=== PATIENT | female | born 1940 | race American Indian/Alaskan Native ===

== ENCOUNTER 2018-11-17 08:39 | Day surgery (SDC) | payer BC ==
[2018-11-17 09:34] VITALS: BMI 21.4
[2018-11-17 11:00] VITALS: TEMP 98.3
[2018-11-17 13:46] VITALS: BP 120/46; PULSE 72
== END 2018-11-17 12:00 | disposition home or self-care (01) ==
LOC: JOR 08:39 → JASU-ENDO 08:39
PROVIDERS: ATTEND Internal Medicine Gastroenterology
PROC: 0DJD8ZZ Inspection of Lower Intestinal Tract, Via Natural or Artificial Opening Endoscopic (ICD-10-PCS; principal; 2018-11-17 09:45)
DX: Z12.11 Encounter for screening for malignant neoplasm of colon (principal); K55.20 Angiodysplasia of colon without hemorrhage; K57.30 Diverticulosis of large intestine without perforation or abscess without bleeding; Z86.010 Personal history of colon polyps; I10 Essential (primary) hypertension

== ENCOUNTER 2023-12-09 10:39 | Observation (INO) | payer BC ==
[2023-12-09 11:55] LABS: EPI CELLS 4 /uL (0-25.1); HYALINE CASTS 3 /uL (0-3.1); PH,URINE 6.5 (5.0-8.0); URINE APPEARANCE CLOUDY; URINE BACTERIA 235 /uL (0-1359); URINE BILIRUBIN NEGATIVE (NEGATIVE); URINE COLOR YELLOW; URINE GLUCOSE (UA) NEGATIVE (NEGATIVE); URINE KETONE NEGATIVE (NEGATIVE); URINE LEUK ESTERASE 3+ (NEGATIVE); URINE NITRITE NEGATIVE (NEGATIVE); URINE PROTEIN 1+ (NEGATIVE); URINE RBC 28 /uL (0-23.9); URINE UROBILINOGEN 0.2 mg/dL (0.2-1.0); URINE WBC 1735 /uL (0-25.8)
[2023-12-09 12:31] LABS: BASO % 0.5 % (0-2.0); HEMATOCRIT 34.5 % (32.4-45.2); HEMOGLOBIN 11.5 GM/dL (10.7-15.3); MCH 29.9 pg (25.7-33.7); MCHC 33.2 g/dl (32.0-36.0); MEAN CELL VOLUME 89.9 fl (80-96); MEAN PLT VOLUME 7.8 fl (7.5-11.1); MONO % 8.6 % (3.8-10.2); NEUT % 74.9 % (42.8-82.8); PLATELET COUNT 320 10^3/uL (134-434); RBC 3.84 M/mm3 (3.60-5.2); RDW 13.8 % (11.6-15.6); WHITE BLOOD COUNT 11.3 K/mm3 (4.0-10.0)
[2023-12-09 12:54] LABS: POTASSIUM 4.3 mmol/L (3.5-5.1)
[2023-12-09 12:56] LABS: ALBUMIN 3.2 g/dl (3.4-5.0); CALCIUM 9.4 mg/dL (8.5-10.1)
[2023-12-09 12:57] LABS: BLOOD UREA NITROGEN 14.3 mg/dL (7-18); MAGNESIUM 2.4 mg/dL (1.8-2.4)
[2023-12-09 13:00] LABS: CREATININE 0.8 mg/dL (0.55-1.3)
[2023-12-09 13:02] LABS: BILIRUBIN,TOTAL 0.4 mg/dL (0.2-1); TOT PROT 7.4 g/dl (6.4-8.2)
[2023-12-09] MEDS ORDERED: CEFTRIAXONE 1 GM/50 ML BAG ONE (13:34)
[2023-12-09] MEDS: CEFTRIAXONE 1,000 MG in DEXTROSE 5%-WATER - 50 ML IVPB ONE (13:34)
[2023-12-09] MEDS: ALPRAZolam 0.25 MG TABLET PO PRN (21:41)
[2023-12-09] MEDS: LOSARTAN POTASSIUM 50 MG TABLET PO SCH (21:41)
[2023-12-09] MEDS: ATORVASTATIN CA 10 MG TABLET (FP) PO SCH (21:41)
[2023-12-09] MEDS: MIRTAZAPINE 15 MG TABLET (FP) PO SCH (21:41)
[2023-12-10] MEDS: MELATONIN 5 MG TABLETS PO ONE (01:16)
[2023-12-10] MEDS: ASPIRIN COATED 81 MG TABLET.EC PO SCH (10:23)
[2023-12-10] MEDS: CEFTRIAXONE 1 GM in DEXTROSE 5%-WATER - 50 ML IVPB SCH (10:23)
[2023-12-10 10:30] LABS: HEMATOCRIT 34.5 % (32.4-45.2); HEMOGLOBIN 11.5 GM/dL (10.7-15.3); MCH 30.1 pg (25.7-33.7); MCHC 33.3 g/dl (32.0-36.0); MEAN CELL VOLUME 90.4 fl (80-96); MEAN PLT VOLUME 8.3 fl (7.5-11.1); PLATELET COUNT 363 10^3/uL (134-434); RBC 3.82 M/mm3 (3.60-5.2); RDW 13.8 % (11.6-15.6); WHITE BLOOD COUNT 10.1 K/mm3 (4.0-10.0)
[2023-12-10 10:51] LABS: POTASSIUM 4.5 mmol/L (3.5-5.1)
[2023-12-10 10:54] LABS: CALCIUM 9.3 mg/dL (8.5-10.1)
[2023-12-10 10:55] LABS: ALBUMIN 3.1 g/dl (3.4-5.0); BLOOD UREA NITROGEN 14.4 mg/dL (7-18)
[2023-12-10 10:58] LABS: CREATININE 0.9 mg/dL (0.55-1.3); PHOSPHOROUS 3.9 mg/dL (2.5-4.9)
[2023-12-10 10:59] LABS: BILIRUBIN,TOTAL 0.4 mg/dL (0.2-1); TOT PROT 7.3 g/dl (6.4-8.2)
[2023-12-10 11:17] LABS: MAGNESIUM 2.6 mg/dL (1.8-2.4)
[2023-12-10] MEDS: MELATONIN 5 MG TABLETS PO PRN (22:01)
[2023-12-11 06:54] VITALS: RESP 18
[2023-12-11 09:56] LABS: BASO % 0.8 % (0-2.0); EOS % 4.2 % (0-4.5); HEMATOCRIT 31.2 % (32.4-45.2); HEMOGLOBIN 10.3 GM/dL (10.7-15.3); LYMPH % 16.2 % (8-40); MCH 29.8 pg (25.7-33.7); MCHC 33.1 g/dl (32.0-36.0); MONO % 6.7 % (3.8-10.2); NEUT % 72.1 % (42.8-82.8); PLATELET COUNT 315 10^3/uL (134-434); RBC 3.46 M/mm3 (3.60-5.2); RDW 13.3 % (11.6-15.6)
[2023-12-11 10:20] LABS: POTASSIUM 4.3 mmol/L (3.5-5.1)
[2023-12-11 10:30] LABS: ALBUMIN 2.7 g/dl (3.4-5.0); BLOOD UREA NITROGEN 11.9 mg/dL (7-18); MAGNESIUM 2.3 mg/dL (1.8-2.4)
[2023-12-11 10:33] LABS: CREATININE 0.7 mg/dL (0.55-1.3); PHOSPHOROUS 3.8 mg/dL (2.5-4.9)
[2023-12-11 10:34] LABS: BILIRUBIN,TOTAL 0.4 mg/dL (0.2-1); TOT PROT 6.4 g/dl (6.4-8.2)
[2023-12-11 14:58] VITALS: BMI 20.3
[2023-12-11] MEDS: ONDANSETRON *ODT* 4 MG TABLET SL PRN (20:24)
[2023-12-12 10:37] LABS: BASO % 0.9 % (0-2.0); EOS % 3.2 % (0-4.5); HEMATOCRIT 28.7 % (32.4-45.2); HEMOGLOBIN 10.1 GM/dL (10.7-15.3); LYMPH % 13.1 % (8-40); MCH 31.2 pg (25.7-33.7); MCHC 35.2 g/dl (32.0-36.0); MEAN CELL VOLUME 88.7 fl (80-96); MEAN PLT VOLUME 7.8 fl (7.5-11.1); MONO % 6.6 % (3.8-10.2); NEUT % 76.2 % (42.8-82.8); PLATELET COUNT 365 10^3/uL (134-434); RBC 3.24 M/mm3 (3.60-5.2); RDW 13.5 % (11.6-15.6); WHITE BLOOD COUNT 10.4 K/mm3 (4.0-10.0)
[2023-12-12 11:00] LABS: POTASSIUM 4.4 mmol/L (3.5-5.1)
[2023-12-12 11:03] LABS: ALBUMIN 2.7 g/dl (3.4-5.0); BLOOD UREA NITROGEN 12.8 mg/dL (7-18)
[2023-12-12 11:06] LABS: CREATININE 0.9 mg/dL (0.55-1.3); PHOSPHOROUS 3.9 mg/dL (2.5-4.9)
[2023-12-12 11:07] LABS: BILIRUBIN,TOTAL 0.3 mg/dL (0.2-1); TOT PROT 6.3 g/dl (6.4-8.2)
[2023-12-12 15:17] VITALS: BP 110/73; PULSE 66; TEMP 99.1
== END 2023-12-12 18:22 | disposition home or self-care (01) ==
LOC: JER 10:39 → JERBED 14:21 → J5S 15:43
PROVIDERS: ADMIT Internal Medicine
DX: N39.0 Urinary tract infection, site not specified (principal); B96.20 Unspecified Escherichia coli [E. coli] as the cause of diseases classified elsewhere; N31.2 Flaccid neuropathic bladder, not elsewhere classified; I10 Essential (primary) hypertension; E78.5 Hyperlipidemia, unspecified; Z29.89 Encounter for other specified prophylactic measures
CPT/HCPCS: 36415; 71046-TC-FY; 76775-TC; 76856-TC; 80053; 81003; 83735; 84100; 84443; 84484; 85025; 85027; 87086; 87186; 93005; 93010; 96365; 96366; 97116-GP; 97161-GP; 99285-25; G0378; Q0162